=== PATIENT | male | born 1970 | race Caucasian/White ===

== ENCOUNTER 2017-05-21 10:56 | Day surgery (SDC) | payer OTHER ==
[2017-05-13 13:11] VITALS: BMI 36.3
[2017-05-21] MEDS ORDERED: BUPIVACAINE HCL 0.25% 125 MG/50 ML VIAL ONE (12:20)
[2017-05-21] MEDS ORDERED: EPINEPHrine 1:1,000 1 MG/1 ML - 30ML VIAL (INJECTION) ONE (12:20)
[2017-05-21] MEDS ORDERED: PROPOFOL 20 ML ONE ×2 (12:29)
[2017-05-21] MEDS ORDERED: MIDAZOLAM HCL 2 MG/2 ML SINGLE DOSE VIAL ONE (12:30)
[2017-05-21] MEDS ORDERED: DEXAMETHASONE SOD PHOSPHATE 4 MG/1 ML VIAL ONE ×2 (12:32→12:53)
[2017-05-21] MEDS ORDERED: ceFAZolin SODIUM 1 GM VIAL ONE (12:32)
[2017-05-21] MEDS ORDERED: KETOROLAC TROMETHAMINE 30 MG/1 ML VIAL ONE (12:32)
[2017-05-21] MEDS ORDERED: LIDOCAINE HCL 2% JELLY (5 ML/TUBE) ONE (12:32)
[2017-05-21] MEDS ORDERED: ONDANSETRON 4 MG/2 ML VIAL ONE ×2 (12:32→12:53)
[2017-05-21] MEDS ORDERED: GLYCOPYRROLATE 0.2 MG/1 ML VIAL ONE (13:11)
[2017-05-21] MEDS ORDERED: BUPIVACAINE HCL/PF 0.25% (2.5MG/ML) 10 ML VIAL IJ ONE (13:16)
--- NOTE | 2017-05-21 13:46 | OP ---
Operative Note - Note: Operative Date: 05/21/17 Pre-Operative Diagnosis: right knee medial meniscal tear Operation: right knee arthroscopy with partial medial meniscectomy Post-Operative Diagnosis: Same as Pre-op Surgeon: John Underwood Anesthesiologist/WEALTH MANAGEMENT DIRECTOR: Rai Shannon Anesthesia: General Estimated Blood Loss (mls): 10 Operative Report Dictated: Yes
[2017-05-21] MEDS ORDERED: ONDANSETRON 4 MG/2 ML VIAL IVPUSH PRN (14:43)
[2017-05-21] MEDS ORDERED: PROMETHAZINE HCL 25 MG/1 ML VIAL IVPB PRN (14:43)
[2017-05-21] MEDS ORDERED: oxyCODONE HCL 5 MG TABLET PO PRN ×2 (14:43)
[2017-05-21] MEDS ORDERED: LACTATED RINGERS SOLUTION 1,000 ML IV SCH (14:45)
[2017-05-21 16:04] VITALS: BP 122/68; PULSE 71; TEMP 98.2
--- NOTE | 2017-05-21 16:05 | OP ---
DATE OF OPERATION: 05/21/2017 PREOPERATIVE DIAGNOSIS: Right knee medial meniscal tear. POSTOPERATIVE DIAGNOSIS: Right knee medial meniscal tear. PROCEDURE: Right knee arthroscopy with partial medial meniscectomy. SURGEON: John Underwood MD ANESTHESIA: General. POSTOPERATIVE CONDITION: Stable. COMPLICATIONS: None. BLOOD LOSS: Minimal. INDICATIONS: This is a pleasant, 46-year-old gentleman who has been suffering from medial knee pain. MRI demonstrated medial meniscal tear. Treatment options including nonoperative versus operative treatment were reviewed. Operative risks were reviewed in detail including bleeding, infection, neurovascular injury, need for further surgery, postoperative pain and stiffness, progression of osteoarthritis. We discussed medical risks such as heart attack, stroke, DVT, PE, and . I addressed all the patient's questions and concerns. We reviewed the use of perioperative DVT and antibiotic prophylaxis. He voiced understanding and elected to proceed. DESCRIPTION OF PROCEDURE: Patient was brought to the operating room where general anesthesia was administered. The right lower extremity was then prepped and draped in the usual sterile fashion. A preoperative dose of antibiotics was given, and the usual timeout procedure was performed. The lateral portal was now established using an 11 blade. The arthroscope was passed into the knee, and the patellofemoral joint was examined. There were no significant lesions noted, though there was a significant plica present. The arthroscope was now passed down to the notch. The ACL and PCL were visualized to be intact. A medial portal was now established under spinal needle localization. Examination of the medial compartment demonstrated some mild partial-thickness cartilage loss and superficial fraying on the tibial side. There was a significant tear involving the posterior horn and body of the medial meniscus, which was complex in nature. Utilizing a combination of meniscal biter and shaver, this was debrided down to a stable base. The arthroscope was now passed to the lateral compartment. Here, also some mild articular cartilage wear was noted. The meniscus was unremarkable and was probed and found to be stable. The excess fluid was now withdrawn from the knee. The portals were sutured using 3-0 nylon. Sterile dressings were placed. The patient was extubated and transferred to the recovery room in stable condition. Hillary RETANA/[id number]
== END 2017-05-21 16:07 | disposition home or self-care (01) ==
LOC: FASU 10:56
PROVIDERS: ATTEND Orthopaedic Surgery Sports Medicine
PROC: 0SBC4ZZ Excision of Right Knee Joint, Percutaneous Endoscopic Approach (ICD-10-PCS; principal; 2017-05-21 13:16)
DX: S83.241A Other tear of medial meniscus, current injury, right knee, initial encounter (principal); X58.XXXA Exposure to other specified factors, initial encounter; Y93.9 Activity, unspecified; Y92.9 Unspecified place or not applicable

== ENCOUNTER 2023-10-15 06:14 | Day surgery (SDC) | payer OTHER ==
[2023-10-07 15:03] VITALS: BMI 35.6
[2023-10-15] MEDS ORDERED: MIDAZOLAM HCL 2 MG/2 ML SINGLE DOSE VIAL ONE ×2 (07:32→10:57)
[2023-10-15] MEDS ORDERED: PROPOFOL 40 ML ONE (07:32)
[2023-10-15] MEDS ORDERED: HYDROmorphone HCL/PF 1 MG/ML VIAL ONE (07:55)
[2023-10-15] MEDS ORDERED: PHENYLEPHRINE HCL 10 MG/1 ML SINGLE DOSE VIAL ONE (08:01)
[2023-10-15] MEDS ORDERED: BUPIVACAINE HCL/PF 2.5 MG/ML - 30 ML VIAL IJ ONE (08:16)
[2023-10-15] MEDS ORDERED: PROPOFOL 20 ML ONE ×5 (08:36→11:22)
[2023-10-15] MEDS ORDERED: ePHEDrine SULFATE 50 MG/1 ML AMPULE ONE (10:06)
[2023-10-15] MEDS: BUPIVACAINE HCL/PF 0.25% (2.5MG/ML) 10 ML VIAL IJ ONE (10:36)
[2023-10-15] MEDS ORDERED: SUCCINYLCHOLINE CHLORIDE 200 MG/10 ML SYRINGE ONE (11:09)
[2023-10-15] MEDS ORDERED: DEXMEDETOMIDINE HCL 200 MCG/2 ML IVPB ONE (11:33)
[2023-10-15] MEDS ORDERED: GUM MASTIC/STORAX/MSAL/ALCOHOL 1 DRP DROPSBTL MC ONE (11:58)
[2023-10-15] MEDS ORDERED: ONDANSETRON 4 MG/2 ML VIAL IVPUSH PRN (12:40)
[2023-10-15] MEDS ORDERED: ACETAMINOPHEN INJECTION 100 ML ONE (13:23)
[2023-10-15] MEDS: ACETAMINOPHEN 1000 MG/100 ML BAG IVPB ONE (13:25)
[2023-10-15 14:14] VITALS: TEMP 97.4
[2023-10-15 14:52] VITALS: BP 108/62; PULSE 76; RESP 20
== END 2023-10-15 14:40 | disposition home or self-care (01) ==
LOC: FASU 06:14
PROVIDERS: ATTEND Orthopaedic Surgery Sports Medicine
PROC: 0RHJ04Z Insertion of Internal Fixation Device into Right Shoulder Joint, Open Approach (ICD-10-PCS; 2023-10-15)
PROC: 0LS30ZZ Reposition Right Upper Arm Tendon, Open Approach (ICD-10-PCS; principal; 2023-10-15 08:12)
DX: S46.211A Strain of muscle, fascia and tendon of other parts of biceps, right arm, initial encounter (principal); X58.XXXA Exposure to other specified factors, initial encounter; Y92.9 Unspecified place or not applicable; Y93.9 Activity, unspecified
CPT/HCPCS: 24341; 24342; C1713; 73070-TC-RT-FY; 94760; J0131